=== PATIENT | female | born 1970 | race Caucasian/White ===

== ENCOUNTER 2017-10-04 08:06 | Outpatient (CLI) | payer OTHER ==
[~2017-10-04 08:06] MED LIST: ALDOMET250 MG; SECTRAL200 MG
== END 2017-10-04 08:08 | disposition home or self-care (01) ==
LOC: SONOGRAMA 08:06 → MAMO-SONO 08:15
DX: N84.0 Polyp of corpus uteri (principal); D25.9 Leiomyoma of uterus, unspecified

== ENCOUNTER 2018-06-19 04:28 | Emergency (ER) | payer OTHER ==
[~2018-06-19] VITALS: Ht 162.6 cm; Wt 65.8 kg
[2018-06-19] MEDS ORDERED: BENICAR20 MG (05:07)
[2018-06-19] MEDS ORDERED: TOPROL XL25 MG (05:08)
== END 2018-06-19 10:12 | disposition home or self-care (01) ==
LOC: ER 04:28
DX: E27.8 Other specified disorders of adrenal gland (principal); R10.2 Pelvic and perineal pain

== ENCOUNTER 2024-04-30 01:21 | Emergency (ER) | payer OTHER ==
[~2024-04-30] VITALS: Ht 165.1 cm; Wt 86.2 kg
[~2024-04-30 01:21] MED LIST changes: +BENICAR20 MG; +TOPROL XL25 MG
[2024-04-30] MEDS ORDERED: 0.9 % SODIUM CHLORIDE 1,000 ML IV STA (02:48)
[2024-04-30] MEDS ORDERED: FAMOtidine 10 MG/ML (4ML VIAL) IV PUSH STA (02:49)
[2024-04-30] MEDS ORDERED: ONDANSETRON HCL 2 MG/ML VIAL IV STA (02:49)
[2024-04-30] MEDS ORDERED: DIPHENOXYLATE HCL/ATROPINE 1 UDTAB TABLET PO STA (02:50)
[2024-04-30] MEDS ORDERED: HYOSCYAMINE SULFATE 0.125 MG TAB.SUBL SL ONE ×2 (03:00→08:00)
[2024-04-30 03:51] LABS: HEMATOCRIT 43.8 % (36.0-45.00); MEAN CELL VOLUME 86.4 fL (80.00-100.00); MEAN CORPUSCULAR HEMOGLOBIN 29.5 pg (27.00-32.0); MEAN CORPUSCULAR HGB CONC 34.2 g/dl (32.0-36.0); PLATELET COUNT 298 K/uL (150-450); RED BLOOD COUNT 5.07 M/uL (4.00-6.00); RED CELL DISTRIBUTION WIDTH 13.3 % (11.5-14.5)
[2024-04-30 03:53] LABS: CALCIUM 9.8 mg/dL (8.5-10.1); CREATININE SERUM 1.08 mg/dL (0.55-1.02); GFR 52.87; POTASSIUM 3.42 mEq/L (3.5-5.1)
[2024-04-30] MEDS ORDERED: BISMUTH SUBSALICYLATE 524 MG/30 ML BLIST.PACK PO STA (04:24)
[2024-04-30] MEDS ORDERED: CEFAZOLIN SODIUM 1,000 MG VIAL IM STA (05:31)
[2024-04-30] MEDS ORDERED: KETOROLAC TROMETHAMINE 30 MG VIAL IV STA (07:55)
== END 2024-04-30 06:45 | disposition home or self-care (01) ==
LOC: ER 01:21
DX: K52.9 Noninfective gastroenteritis and colitis, unspecified (principal); R10.9 Unspecified abdominal pain